=== PATIENT | female | born 1975 | race Caucasian/White ===

== ENCOUNTER 2016-10-12 12:57 | Emergency (ER) | payer SELFPAY ==
[~2016-10-12] VITALS: Ht 165.1 cm; Wt 59.1 kg
[~2016-10-12 12:57] MED LIST: BACTRIM DS 8001 TAB PO; K-DUR20 MEQ PO; LORTAB 5/500 501 TAB PO; NEURONTIN600 MG/TAB PO; NO HOME MEDICATIONS; NORCO 325 MG-51 TAB PO; ULTRAM 50MG TAB50 MG PO
[2016-10-12 12:58] VITALS: TEMP 98.5
[2016-10-12 13:51] VITALS: BP 132/83; PULSE 82
== END 2016-10-12 13:54 | disposition home or self-care (01) ==
LOC: COL.ER 12:57
DX: R22.0 Localized swelling, mass and lump, head (principal)

== ENCOUNTER 2017-01-06 18:03 | Emergency (ER) | payer SELFPAY ==
[~2017-01-06] VITALS: Ht 165.1 cm; Wt 54.5 kg
[2017-01-06 18:27] VITALS: BP 161/59
[2017-01-06] MEDS ORDERED: CEPHALEXIN500 M1 PO (19:16)
[2017-01-06] MEDS ORDERED: NORCO 325 MG-51 TAB PO (19:16)
[2017-01-06 19:29] VITALS: PULSE 76; TEMP 97.5
== END 2017-01-06 19:32 | disposition home or self-care (01) ==
LOC: COL.ER 18:03
DX: M65.842 Other synovitis and tenosynovitis, left hand (principal)
CPT/HCPCS: J0696

== ENCOUNTER 2017-02-24 11:43 | Emergency (ER) | payer SELFPAY ==
[~2017-02-24] VITALS: Ht 165.1 cm; Wt 55.0 kg
[~2017-02-24 11:43] MED LIST changes: +CEPHALEXIN500 M1 PO
[2017-02-24 11:46] VITALS: BP 122/75; PULSE 84; TEMP 98
== END 2017-02-24 13:23 | disposition home or self-care (01) ==
LOC: COL.ER 11:43
DX: S90.32XA Contusion of left foot, initial encounter (principal); S90.415A Abrasion, left lesser toe(s), initial encounter; S90.31XA Contusion of right foot, initial encounter; W06.XXXA Fall from bed, initial encounter; Y92.003 Bedroom of unspecified non-institutional (private) residence as the place of occurrence of the external cause; G43.909 Migraine, unspecified, not intractable, without status migrainosus

== ENCOUNTER 2017-06-25 12:21 | Emergency (ER) | payer SELFPAY ==
[~2017-06-25] VITALS: Ht 165.1 cm; Wt 53.6 kg
[2017-06-25 12:23] VITALS: TEMP 98
[2017-06-25 12:59] LABS: PH 7 (5-8); SQUAMOUS EPITHELIAL 0-2 /hpf; URINE APPEARANCE Clear; URINE BACTERIA None Seen /hpf; URINE BILIRUBIN Negative (NEGATIVE); URINE BLOOD 2+ (NEGATIVE); URINE COLOR Yellow; URINE GLUCOSE Negative (NEGATIVE); URINE KETONE Negative (NEGATIVE); URINE RBC None Seen /hpf; URINE WBC 0-2 /hpf
[2017-06-25 13:05] LABS: BASO # 0.1 (0.0-0.2); BASO % 0.7 % (0.0-2.0); EOS # 0.2 (0.0-0.7); EOS % 2.1 % (0-4.0); GRAN # 2.8 (1.4-6.5); GRAN % 36.7 % (42.2-75.2); HEMATOCRIT 40.9 % (37.0-47.0); HEMOGLOBIN 13.4 g/dl (12.5-16.0); LYMPH # 3.6 (1.2-3.4); LYMPH % 47.2 % (20.0-51.0); MEAN CELL VOLUME 94 fl (80.0-100.0); MEAN CORPUSCULAR HEMOGLOBIN 31 pg (27.0-31.0); MEAN CORPUSCULAR HGB CONC 33 g/dl (33.0-37.0); MEAN PLATELET VOLUME 11.2 fl (7.4-10.4); MONO % 12.8 % (1.7-9.3); PLATELET COUNT 249 K/mm3 (130-400); RED BLOOD COUNT 4.36 M/mm3 (4.10-5.30); REDCELL DISTRIBUTION WIDTH-CV 13.5 % (11.5-14.5); WHITE BLOOD COUNT 7.5 K/mm3 (4.8-10.8)
[2017-06-25 15:13] LABS: ADJUSTED CALCIUM 8.6 mg/dL (8.4-10.2); ALANINE AMINOTRANSFERASE 41 U/L (9-52); ALBUMIN 3.4 gm/dL (3.5-5.0); ALKALINE PHOSPHATASE 51 U/L (50-136); ANION GAP 7 mmol/L (7-16); BILIRUBIN,TOTAL 0.4 mg/dL (0.0-1.0); BLOOD UREA NITROGEN 10 mg/dL (7-17); CALCIUM 8.1 mg/dL (8.4-10.2); CARBON DIOXIDE 24 mmol/L (22-30); CHLORIDE 109 mmol/L (98-107); CREATININE, serum 0.77 mg/dL (0.52-1.25); GLUCOSE 78 mg/dL (74-106); POTASSIUM 4.3 mmol/L (3.4-5.0); SODIUM 140 mmol/L (137-145); TOTAL PROTEIN 6.2 gm/dL (6.4-8.2)
[2017-06-25 15:15] LABS: C-REACTIVE PROTEIN < 0.5 mg/dL (0.0-0.9)
[2017-06-25] MEDS ORDERED: FLAGYL500 MG PO (15:34)
[2017-06-25] MEDS ORDERED: NORCO 325 MG-51 TAB PO (15:34)
[2017-06-25 15:41] VITALS: BP 122/62; PULSE 82
[2017-06-25 16:21] LABS: CHLAMYDIA/TRACH by PCR Female NOT DETECTED; NEISSERIA GON by PCR Female NOT DETECTED
== END 2017-06-25 15:43 | disposition home or self-care (01) ==
LOC: COL.ER 12:21
PROVIDERS: Emergency Medicine
DX: N83.202 Unspecified ovarian cyst, left side (principal); K42.9 Umbilical hernia without obstruction or gangrene; N76.0 Acute vaginitis; F17.210 Nicotine dependence, cigarettes, uncomplicated; Z86.19 Personal history of other infectious and parasitic diseases; Z98.51 Tubal ligation status
CPT/HCPCS: J1170; J7030; Q9967

== ENCOUNTER 2017-07-03 16:49 | Emergency (ER) | payer SELFPAY ==
[~2017-07-03] VITALS: Ht 165.1 cm; Wt 54.5 kg
[~2017-07-03 16:49] MED LIST changes: +FLAGYL500 MG PO
[2017-07-03 17:02] VITALS: TEMP 98.7
[2017-07-03] MEDS ORDERED: NORCO 325 MG-51 TAB PO (18:02)
[2017-07-03 18:12] VITALS: BP 118/93; PULSE 67
== END 2017-07-03 18:14 | disposition home or self-care (01) ==
LOC: COL.ER 16:49
DX: N83.202 Unspecified ovarian cyst, left side (principal); F12.10 Cannabis abuse, uncomplicated; F17.210 Nicotine dependence, cigarettes, uncomplicated; Z84.2 Family history of other diseases of the genitourinary system
CPT/HCPCS: J1170

== ENCOUNTER 2017-08-07 11:02 | Emergency (ER) | payer OTHER ==
[~2017-08-07] VITALS: Ht 165.1 cm; Wt 62.7 kg
[2017-08-07 11:03] VITALS: BP 109/59; TEMP 97.6
[2017-08-07 11:46] LABS: COLLECTION METHOD CLEAN CATCH
[2017-08-07 11:51] LABS: BASO # 0.1 (0.0-0.2); BASO % 0.6 % (0.0-2.0); EOS # 0.1 (0.0-0.7); EOS % 1.2 % (0-4.0); GRAN # 3.5 (1.4-6.5); GRAN % 42.1 % (42.2-75.2); HEMATOCRIT 41.9 % (37.0-47.0); HEMOGLOBIN 14.1 g/dl (12.5-16.0); LYMPH # 3.5 (1.2-3.4); LYMPH % 42.3 % (20.0-51.0); MEAN CELL VOLUME 91 fl (80.0-100.0); MEAN CORPUSCULAR HEMOGLOBIN 31 pg (27.0-31.0); MEAN CORPUSCULAR HGB CONC 34 g/dl (33.0-37.0); MEAN PLATELET VOLUME 11.5 fl (7.4-10.4); MONO # 1.1 (0.1-0.6); MONO % 13.3 % (1.7-9.3); PLATELET COUNT 242 K/mm3 (130-400); RED BLOOD COUNT 4.59 M/mm3 (4.10-5.30); WHITE BLOOD COUNT 8.2 K/mm3 (4.8-10.8)
[2017-08-07 11:59] LABS: PH 5 (5-8); URINE APPEARANCE Clear; URINE BACTERIA None Seen /hpf; URINE BILIRUBIN Negative (NEGATIVE); URINE BLOOD Negative (NEGATIVE); URINE COLOR Yellow; URINE GLUCOSE Negative (NEGATIVE); URINE KETONE Negative (NEGATIVE); URINE LEUKOCYTE ESTERASE Negative (NEGATIVE); URINE PROTEIN(semi-quant) Negative (NEGATIVE); URINE RBC 0-2 /hpf; URINE UROBILINOGEN Negative (NEGATIVE); URINE WBC 0-2 /hpf
[2017-08-07 12:04] LABS: ADJUSTED CALCIUM 9.1 mg/dL (8.4-10.2); ALANINE AMINOTRANSFERASE 33 U/L (9-52); ALBUMIN 4.3 gm/dL (3.5-5.0); ALKALINE PHOSPHATASE 56 U/L (50-136); ANION GAP 10 mmol/L (7-16); BILIRUBIN,TOTAL 0.5 mg/dL (0.0-1.0); BLOOD UREA NITROGEN 9 mg/dL (7-17); CALCIUM 9.3 mg/dL (8.4-10.2); CARBON DIOXIDE 25 mmol/L (22-30); CHLORIDE 104 mmol/L (98-107); CREATININE, serum 0.71 mg/dL (0.52-1.25); GLUCOSE 73 mg/dL (74-106); LIPASE 61 U/L (23-300); SODIUM 139 mmol/L (137-145); TOTAL PROTEIN 7.2 gm/dL (6.4-8.2)
[2017-08-07 12:05] LABS: C-REACTIVE PROTEIN < 0.5 mg/dL (0.0-0.9)
[2017-08-07] MEDS ORDERED: NORCO 325 MG-51 TAB PO (12:21)
[2017-08-07 12:42] VITALS: PULSE 61
[2017-08-07 13:29] LABS: CHLAMYDIA/TRACH by PCR Female NOT DETECTED; NEISSERIA GON by PCR Female NOT DETECTED
== END 2017-08-07 12:42 | disposition home or self-care (01) ==
LOC: COL.ER 11:02
PROVIDERS: Emergency Medicine
DX: R10.2 Pelvic and perineal pain (principal); Z87.42 Personal history of other diseases of the female genital tract; Z98.51 Tubal ligation status
CPT/HCPCS: J2270; J2405; J7030

== ENCOUNTER 2017-08-23 11:50 | Emergency (ER) | payer OTHER ==
[~2017-08-23] VITALS: Ht 165.1 cm; Wt 62.7 kg
[2017-08-23 11:54] VITALS: BP 137/75; TEMP 98
[2017-08-23 12:55] LABS: COLLECTION METHOD CLEAN CATCH
[2017-08-23 13:01] LABS: BASO # 0.1 (0.0-0.2); BASO % 0.7 % (0.0-2.0); EOS # 0.1 (0.0-0.7); EOS % 1.6 % (0-4.0); GRAN # 3.8 (1.4-6.5); GRAN % 53.9 % (42.2-75.2); HEMATOCRIT 47.7 % (37.0-47.0); HEMOGLOBIN 15.4 g/dl (12.5-16.0); LYMPH # 2.4 (1.2-3.4); LYMPH % 33.6 % (20.0-51.0); MEAN CELL VOLUME 93 fl (80.0-100.0); MEAN CORPUSCULAR HEMOGLOBIN 30 pg (27.0-31.0); MEAN CORPUSCULAR HGB CONC 32 g/dl (33.0-37.0); MEAN PLATELET VOLUME 11.5 fl (7.4-10.4); MONO # 0.7 (0.1-0.6); MONO % 10.2 % (1.7-9.3); PH 5 (5-8); PLATELET COUNT 253 K/mm3 (130-400); RED BLOOD COUNT 5.12 M/mm3 (4.10-5.30); SQUAMOUS EPITHELIAL 0-2 /hpf; URINE APPEARANCE Clear; URINE BACTERIA None Seen /hpf; URINE BILIRUBIN Negative (NEGATIVE); URINE BLOOD 1+ (NEGATIVE); URINE COLOR Yellow; URINE GLUCOSE Negative (NEGATIVE); URINE KETONE Negative (NEGATIVE); URINE LEUKOCYTE ESTERASE Negative (NEGATIVE); URINE PROTEIN(semi-quant) Negative (NEGATIVE); URINE RBC 0-2 /hpf; URINE UROBILINOGEN Negative (NEGATIVE); URINE WBC 0-2 /hpf; WHITE BLOOD COUNT 7.1 K/mm3 (4.8-10.8)
[2017-08-23 15:03] VITALS: PULSE 68
== END 2017-08-23 15:05 | disposition home or self-care (01) ==
LOC: COL.ER 11:50
PROVIDERS: Physician Assistant
DX: N83.202 Unspecified ovarian cyst, left side (principal); N93.8 Other specified abnormal uterine and vaginal bleeding; Z98.51 Tubal ligation status

== ENCOUNTER 2017-08-31 21:49 | Emergency (ER) | payer OTHER ==
[~2017-08-31] VITALS: Ht 165.1 cm; Wt 62.7 kg
[2017-08-31 21:52] VITALS: BP 121/57; TEMP 98.2
[2017-08-31 22:23] LABS: COLLECTION METHOD CLEAN CATCH
[2017-08-31 22:29] LABS: MUCOUS Present /lpf; PH 5 (5-8); URINE APPEARANCE Clear; URINE BACTERIA Rare /hpf; URINE BILIRUBIN Negative (NEGATIVE); URINE BLOOD Negative (NEGATIVE); URINE COLOR Yellow; URINE GLUCOSE Negative (NEGATIVE); URINE KETONE Negative (NEGATIVE); URINE LEUKOCYTE ESTERASE Negative (NEGATIVE); URINE PROTEIN(semi-quant) Negative (NEGATIVE); URINE RBC 0-2 /hpf; URINE WBC 0-2 /hpf
[2017-08-31 22:35] LABS: AMPHETAMINE URINE NEGATIVE; BARBITURATES URINE NEGATIVE; BENZODIAZEPINES URINE NEGATIVE; BUPRENORPHINE URINE NEGATIVE; METHADONE URINE NEGATIVE; OPIATES URINE POSITIVE; OXYCODONE URINE NEGATIVE; PHENCYCLIDINE URINE NEGATIVE; PROPOXYPHENE URINE NEGATIVE; THC CANNABINOIDS URINE NEGATIVE; TRICYCLIC ANTIDEPRESS URINE NEGATIVE
[2017-08-31 23:00] VITALS: PULSE 101
== END 2017-08-31 23:01 | disposition home or self-care (01) ==
LOC: COL.ER 21:49
PROVIDERS: Physician Assistant
DX: R10.2 Pelvic and perineal pain (principal); G89.29 Other chronic pain; F17.210 Nicotine dependence, cigarettes, uncomplicated; Z98.51 Tubal ligation status

== ENCOUNTER 2017-09-15 12:53 | Emergency (ER) | payer SELFPAY ==
[~2017-09-15] VITALS: Ht 165.1 cm; Wt 62.7 kg
[2017-09-15 13:00] VITALS: TEMP 97.6
[2017-09-15 14:52] LABS: BASO # 0.1 (0.0-0.2); BASO % 0.5 % (0.0-2.0); EOS # 0.1 (0.0-0.7); EOS % 0.5 % (0-4.0); GRAN # 8.3 (1.4-6.5); GRAN % 69.5 % (42.2-75.2); HEMATOCRIT 44.1 % (37.0-47.0); HEMOGLOBIN 14.7 g/dl (12.5-16.0); LYMPH # 2.8 (1.2-3.4); LYMPH % 23.1 % (20.0-51.0); MEAN CELL VOLUME 92 fl (80.0-100.0); MEAN CORPUSCULAR HEMOGLOBIN 31 pg (27.0-31.0); MEAN CORPUSCULAR HGB CONC 33 g/dl (33.0-37.0); MEAN PLATELET VOLUME 11.5 fl (7.4-10.4); MONO # 0.7 (0.1-0.6); MONO % 6.1 % (1.7-9.3); PLATELET COUNT 232 K/mm3 (130-400); REDCELL DISTRIBUTION WIDTH-CV 13.5 % (11.5-14.5)
[2017-09-15 15:25] VITALS: BP 118/70; PULSE 61
== END 2017-09-15 15:26 | disposition home or self-care (01) ==
LOC: COL.ER 12:53
PROVIDERS: Physician Assistant
DX: N83.202 Unspecified ovarian cyst, left side (principal); F17.210 Nicotine dependence, cigarettes, uncomplicated; F12.90 Cannabis use, unspecified, uncomplicated; Z98.51 Tubal ligation status

== ENCOUNTER 2018-01-09 18:59 | Emergency (ER) | payer SELFPAY ==
[~2018-01-09] VITALS: Ht 165.1 cm; Wt 63.6 kg
[2018-01-09 19:32] VITALS: BP 163/81; TEMP 98.4
[2018-01-09 20:58] VITALS: PULSE 74
== END 2018-01-09 20:59 | disposition home or self-care (01) ==
LOC: COL.ER 18:59
DX: S80.01XA Contusion of right knee, initial encounter (principal); G43.909 Migraine, unspecified, not intractable, without status migrainosus; M19.90 Unspecified osteoarthritis, unspecified site; F17.210 Nicotine dependence, cigarettes, uncomplicated; W01.0XXA Fall on same level from slipping, tripping and stumbling without subsequent striking against object, initial encounter; Y92.89 Other specified places as the place of occurrence of the external cause; Y99.0 Civilian activity done for income or pay

== ENCOUNTER 2018-03-25 17:51 | Emergency (ER) | payer SELFPAY ==
[~2018-03-25] VITALS: Ht 165.1 cm; Wt 53.6 kg
[2018-03-25 17:55] VITALS: BP 120/73; PULSE 69; TEMP 98.1
== END 2018-03-25 19:17 | disposition home or self-care (01) ==
LOC: COL.ER 17:51
DX: M25.571 Pain in right ankle and joints of right foot (principal); G43.909 Migraine, unspecified, not intractable, without status migrainosus; F17.210 Nicotine dependence, cigarettes, uncomplicated; G62.9 Polyneuropathy, unspecified

== ENCOUNTER 2018-04-08 13:14 | Emergency (ER) | payer SELFPAY ==
[~2018-04-08] VITALS: Ht 165.1 cm; Wt 54.1 kg
[2018-04-08 13:20] VITALS: BP 137/85; TEMP 97.7
[2018-04-08 14:22] VITALS: PULSE 62
== END 2018-04-08 14:25 | disposition home or self-care (01) ==
LOC: COL.ER 13:14
DX: M25.562 Pain in left knee (principal); M79.644 Pain in right finger(s); G43.909 Migraine, unspecified, not intractable, without status migrainosus; F17.210 Nicotine dependence, cigarettes, uncomplicated; Z98.51 Tubal ligation status; W01.0XXA Fall on same level from slipping, tripping and stumbling without subsequent striking against object, initial encounter; Y92.89 Other specified places as the place of occurrence of the external cause
CPT/HCPCS: L1846

== ENCOUNTER 2019-02-04 17:18 | Emergency (ER) | payer SELFPAY ==
[~2019-02-04] VITALS: Ht 165.1 cm; Wt 45.5 kg
[2019-02-04 17:23] VITALS: TEMP 99.1
[2019-02-04 17:53] VITALS: BP 125/89; PULSE 80
[2019-02-04 18:02] LABS: BASO # 0.1 (0.0-0.2); BASO % 1.1 % (0.0-2.0); EOS % 0.5 % (0-4.0); GRAN # 4.3 (1.4-6.5); GRAN % 54.1 % (42.2-75.2); HEMATOCRIT 40.1 % (37.0-47.0); HEMOGLOBIN 13.2 g/dl (12.5-16.0); LYMPH # 2.7 (1.2-3.4); LYMPH % 34.3 % (20.0-51.0); MEAN CELL VOLUME 87 fl (80.0-100.0); MEAN CORPUSCULAR HEMOGLOBIN 29 pg (27.0-31.0); MEAN CORPUSCULAR HGB CONC 33 g/dl (33.0-37.0); MEAN PLATELET VOLUME 10.7 fl (7.4-10.4); MONO # 0.8 (0.1-0.6); MONO % 9.9 % (1.7-9.3); PLATELET COUNT 277 K/mm3 (130-400); REDCELL DISTRIBUTION WIDTH-CV 14.3 % (11.5-14.5)
[2019-02-04 18:11] LABS: ALANINE AMINOTRANSFERASE 22 U/L (9-52); ALBUMIN 3.8 gm/dL (3.5-5.0); ALKALINE PHOSPHATASE 51 U/L (50-136); ANION GAP 11 mmol/L (7-16); AST,SGOT 41 U/L (15-37); BILIRUBIN,TOTAL 0.3 mg/dL (0.0-1.0); BLOOD UREA NITROGEN 16 mg/dL (7-17); CALCIUM 9.1 mg/dL (8.4-10.2); CARBON DIOXIDE 23 mmol/L (22-30); CHLORIDE 108 mmol/L (98-107); CREATININE, serum 0.74 (0.52-1.25); GLUCOSE 105 mg/dL (74-106); LIPASE 106 U/L (23-300); POTASSIUM 3.8 mmol/L (3.4-5.0); SODIUM 142 mmol/L (137-145)
[2019-02-04 18:18] LABS: COLLECTION METHOD CLEAN CATCH
[2019-02-04 18:27] LABS: C-REACTIVE PROTEIN < 0.5 mg/dL (0.0-0.9); TROPONIN-I < 0.012 ng/mL (0.000-0.035)
[2019-02-04 18:33] LABS: MUCOUS Present /lpf; PH 5 (5-8); URINE APPEARANCE Clear; URINE BACTERIA Rare /hpf; URINE BILIRUBIN Negative (NEGATIVE); URINE BLOOD Negative (NEGATIVE); URINE COLOR Yellow; URINE GLUCOSE Negative (NEGATIVE); URINE KETONE Negative (NEGATIVE); URINE LEUKOCYTE ESTERASE 2+ (NEGATIVE); URINE NITRATE Negative (NEGATIVE); URINE PROTEIN(semi-quant) Negative (NEGATIVE); URINE UROBILINOGEN Negative (NEGATIVE)
[2019-02-04] MEDS ORDERED: OMNICEF 300MG300 MG PO (20:19)
[2019-02-04] MEDS ORDERED: ZOFRAN ODT4 MG PO (20:19)
== END 2019-02-04 20:45 | disposition home or self-care (01) ==
LOC: COL.ER 17:18
PROVIDERS: Physician Assistant
DX: N39.0 Urinary tract infection, site not specified (principal); G43.909 Migraine, unspecified, not intractable, without status migrainosus; F17.210 Nicotine dependence, cigarettes, uncomplicated
CPT/HCPCS: A4216; J0696; J2405; J3010; J7030; Q9967